=== PATIENT | male | born 1985 | race Hispanic/Latino ===

== ENCOUNTER 2024-02-20 11:40 | Outpatient (CLI) | payer BC | END 2024-02-20 11:41 | disposition home or self-care (01) | LOC: SCSRAD 11:40 | DX: R07.81 Pleurodynia (principal); S22.41XA Multiple fractures of ribs, right side, initial encounter for closed fracture ==

== ENCOUNTER 2024-02-20 19:21 | Emergency (ER) | payer BC ==
[2024-02-20 20:00] LABS: #Basophils 0.07 10x3/uL (0.0-0.2); %Basophils 0.5 % (0.0-1.0); %Eosinophils 0.3 % (0.0-10.0); %Lymphocytes 17.3 % (21.0-51.0); %Monocytes 7.4 % (0.0-10.0); %Neutrophils 74.2 % (42.0-75.0); Hematocrit 45.8 % (42.0-52.0); Hemoglobin 15.5 g/dL (14.0-18.0); Mean Corpuscular HGB CONC 33.8 g/dL (32.0-36.0); Mean Corpuscular Hemoglobin 30.6 pg (27.0-31.0); Mean Corpuscular Volume 90.5 fL (78.0-98.0); Platelet Count 226 10x3/uL (130-400); RBC Distribution Width 13.5 % (11.5-14.5); Red Blood Cell (RBC) Count 5.06 mill/uL (4.70-6.10)
[2024-02-20] MEDS ORDERED: Ketorolac Tromethamine 30 MG (1 mL) VIAL ONE (20:03)
[2024-02-20 20:16] LABS: ALT (SGPT) 47 U/L (8-55); AST (SGOT) 25 U/L (5-34); Albumin 4.2 g/dL (3.5-5.0); Alkaline Phosphatase 97 U/L (40-110); Anion Gap 14 mmol/L (10-20); BUN (Urea Nitrogen) 14 mg/dL (8.9-20.6); Bilirubin, Total 0.5 mg/dL (0.2-1.2); Calc. Creatinine Clearance 0 mL/min (70-130); Calcium 9.3 mg/dL (7.8-10.44); Carbon Dioxide 20 mmol/L (22-29); Chloride 105 mmol/L (98-107); Estimated GFR 99; Globulin 3.2 g/dL (2.4-3.5); Glucose 110 mg/dL (70-105); Potassium 3.6 mmol/L (3.5-5.1); Protein, Total 7.4 g/dL (6.0-8.3); Sodium 135 mmol/L (136-145)
== END 2024-02-20 22:06 | disposition home or self-care (01) ==
LOC: ERS 19:21
DX: R00.0 Tachycardia, unspecified (principal); J18.9 Pneumonia, unspecified organism; S22.41XA Multiple fractures of ribs, right side, initial encounter for closed fracture; X58.XXXA Exposure to other specified factors, initial encounter
CPT/HCPCS: 36415; 71046; 71275; 80053; 83605; 85025; 87040; 93005; 96374; J1885

== ENCOUNTER 2024-03-10 14:27 | Outpatient (CLI) | payer BC | END 2024-03-10 14:28 | disposition home or self-care (01) | LOC: SCSRAD 14:27 | DX: R07.81 Pleurodynia (principal); S22.41XA Multiple fractures of ribs, right side, initial encounter for closed fracture ==

== ENCOUNTER 2024-03-26 12:18 | Outpatient (CLI) | payer BC | END 2024-03-26 12:19 | disposition home or self-care (01) | LOC: SCSRAD 12:18 | DX: R07.81 Pleurodynia (principal); S22.31XD Fracture of one rib, right side, subsequent encounter for fracture with routine healing ==

== ENCOUNTER 2024-03-27 10:57 | Outpatient (CLI) | payer BC, OTHER | END 2024-03-27 10:58 | disposition home or self-care (01) | LOC: BICMAMMO 10:57 | DX: Z13.820 Encounter for screening for osteoporosis (principal); S22.41XG Multiple fractures of ribs, right side, subsequent encounter for fracture with delayed healing; M85.851 Other specified disorders of bone density and structure, right thigh; M85.852 Other specified disorders of bone density and structure, left thigh | CPT/HCPCS: 77080 ==